=== PATIENT | male | born 1965 | race Caucasian/White ===

== ENCOUNTER 2017-05-03 11:29 | Outpatient (CLI) | payer BC ==
[2017-05-03 13:23] LABS: Bilirubin Negative (Negative); Blood, Urine Negative (Negative); Clarity CLEAR (Clear); Glucose, Urine (Dipstick) Negative (Negative); Leukocyte Negative (Negative); Nitrite Negative (Negative); Protein, Urine (Dipstick) Negative (Neg-Trace); Specific Gravity, Urine 1.023 (1.002-1.036); Urobilinogen 0.2 mg/dL (0.2-1.0); pH, Urine 5.5 (5.0-9.0)
[2017-05-03 13:25] LABS: Bacteria/HPF None Seen HPF (None Seen); Hyaline Casts/LPF 0-3 HYALINE CAST LPF (0-3 Hyaline); RBC/HPF 0-3 HPF (0-3); Squamous Epithelial None Seen HPF (0-3); WBC/HPF 0-3 HPF (0-3)
[2017-05-03 13:26] LABS: #Basophils 0.1 thou/uL (0.0-0.2); #Eosinphils 0.2 thou/uL (0.0-0.7); #Lymphocytes 4.7 thou/uL (1.20-3.40); #Neutrophils 9.9 thou/uL (1.40-6.50); %Basophils 0.9 % (0.0-1.0); %Eosinophils 1.4 % (0.0-10.0); %Lymphocytes 29.6 % (21.0-51.0); %Monocytes 6.1 % (0.0-10.0); Hemoglobin 16.2 g/dL (14.0-18.0); Mean Corpuscular Hemoglobin 30.4 pg (27.0-31.0); Mean Platelet Volume 7.8 fL (7.4-10.4); Platelet Count 233 thou/uL (130-400); RBC Distribution Width 13.2 % (11.5-14.5); Red Blood Cell (RBC) Count 5.34 mill/uL (4.70-6.10); White Blood Cell (WBC) Count 15.9 thou/uL (4.8-10.8)
== END 2017-05-03 11:30 | disposition home or self-care (01) ==
LOC: LABBT 11:29
PROVIDERS: ATTEND Orthopaedic Surgery Hand Surgery
DX: Z01.812 Encounter for preprocedural laboratory examination (principal); D17.22 Benign lipomatous neoplasm of skin and subcutaneous tissue of left arm; Z88.0 Allergy status to penicillin
CPT/HCPCS: 81001; 85025

== ENCOUNTER 2017-05-10 09:43 | Day surgery (SDC) | payer BC ==
[2017-05-03 12:04] VITALS: BMI 34.2
[2017-05-10] MEDS ORDERED: CEFAZOLIN 1 GM, Syringe 2.5 ML in Sterile Water 7.5 ML SLOW IVP SCH (10:45)
[2017-05-10] MEDS ORDERED: Lidocaine 1% PF 5 ML VIAL ONE (14:13)
[2017-05-10] MEDS ORDERED: Ondansetron HCl/PF 4 MG/2 ML Vial ONE (14:13)
[2017-05-10] MEDS ORDERED: Propofol 200 MG/20 ML VIAL ONE (14:13)
[2017-05-10] MEDS ORDERED: Ketorolac Tromethamine 30 MG/ML VIAL ONE ×2 (14:13→16:36)
[2017-05-10] MEDS ORDERED: Clindamycin/D5W 900 mg/50 ml Premix Bag ONE (14:20)
[2017-05-10] MEDS ORDERED: Bupivacaine PF 0.5% 30 ML VIAL ONE (15:16)
[2017-05-10] MEDS ORDERED: Bacitracin Zinc Ointment 30 gm TUBE ONE (15:16)
[2017-05-10] MEDS ORDERED: Betamet Acet/Betamet Na Ph 30 MG/5 ML VIAL ONE (15:16)
[2017-05-10] MEDS ORDERED: Midazolam HCl 2 mg/2 ml Vial ONE (15:34)
[2017-05-10] MEDS ORDERED: Fentanyl 100 MCG/2 ML VIAL ONE (15:35)
--- NOTE | 2017-05-11 00:21 | OP ---
DATE OF PROCEDURE: 05/10/2017 PREOPERATIVE DIAGNOSIS: Left thumb lipoma. POSTOPERATIVE DIAGNOSIS: Left thumb lipoma. FINDINGS: Left thumb inclusion cyst, 1 cm diameter with classic inclusion cyst. PROCEDURE PERFORMED: Excisional biopsy, left thumb inclusion cyst. SPECIMENS: Cyst and cavity. TOURNIQUET TIME: 5 minutes. ESTIMATED BLOOD LOSS: 5 mL. INDICATIONS: Pain with contact to the mass, but no Tinel's indicative of neuroma. FINDINGS: A mass between two of the branches of the terminal portion of the thumb, left thumbs, ulna r digital nerves, but not in case around the nerve. BAIT TIER: Kvng Squires, certified coding specialist. DESCRIPTION OF PROCEDURE: After successful general LMA technique, the limb was prepped and draped. Time out was done appropriately. We gave the patient 10 mL 0.5% Marcaine without epinephrine metacar pophalangeal joint block level at the left thumb. We then proceeded with a zigzag incision that was on the most ulnar edge of the mass stand away from the central tuft throughout its entirety. We judd ied this 1.5 cm incision to the skin, subcutaneous tissue until we immediately came upon what was a c lassic layered wax appearance outer cover exudate-filled sebaceous cyst. We dissected this inc luded between the branches of the digital nerve that was protecting them. There was a brown fibrinou s material at the base of it, which were also removed. We then sent the mass as specimen to the lab. Irrigated the area and then released the tourniquet. Hemostasis obtained. Closed incision with inte rrupted 4-0 nylon simple pattern. Bulky dressing was applied and the patient went to the operating r oom without evidence of anesthetic complications.
== END 2017-05-10 17:45 | disposition home or self-care (01) ==
LOC: SDC 09:43
PROVIDERS: ATTEND Orthopaedic Surgery Hand Surgery
PROC: 0JBK0ZZ Excision of Left Hand Subcutaneous Tissue and Fascia, Open Approach (ICD-10-PCS; principal; 2017-05-10)
DX: L72.0 Epidermal cyst (principal); N18.6 End stage renal disease; G43.909 Migraine, unspecified, not intractable, without status migrainosus; F17.210 Nicotine dependence, cigarettes, uncomplicated; H26.9 Unspecified cataract; Z79.2 Long term (current) use of antibiotics; Z79.899 Other long term (current) drug therapy; Z88.0 Allergy status to penicillin; Z91.018 Allergy to other foods; Z98.890 Other specified postprocedural states; Z87.01 Personal history of pneumonia (recurrent)
CPT/HCPCS: 88304; 96372; A4216; J0690; J0702; J1885; J2001; J2250; J2405; J2704; J3010; J3490; S0020

== ENCOUNTER 2020-09-13 12:00 | Observation (INO) | payer BC ==
[2020-09-13 12:22] LABS: #Eosinphils 0.3 thou/uL (0.0-0.7); #Lymphocytes 2.4 thou/uL (1.20-3.40); #Monocytes 0.9 thou/uL (0.11-0.59); #Neutrophils 7.4 thou/uL (1.40-6.50); %Basophils 0.3 % (0.0-1.0); %Eosinophils 2.3 % (0.0-10.0); %Lymphocytes 22.2 % (21.0-51.0); %Monocytes 8.2 % (0.0-10.0); Hemoglobin 16.5 g/dL (14.0-18.0); Mean Corpuscular HGB CONC 33.1 g/dL (32.0-36.0); Mean Corpuscular Hemoglobin 30.3 pg (27.0-31.0); Mean Corpuscular Volume 91.3 fL (78.0-98.0); Mean Platelet Volume 7.8 fL (7.4-10.4); Platelet Count 214 thou/uL (130-400); RBC Distribution Width 13.5 % (11.5-14.5); Red Blood Cell (RBC) Count 5.47 mill/uL (4.70-6.10)
[2020-09-13 12:43] LABS: ALT (SGPT) 29 U/L (8-55); AST (SGOT) 19 U/L (5-34); Albumin 4.3 g/dL (3.5-5.0); Alkaline Phosphatase 97 U/L (40-110); Anion Gap 13 mmol/L (10-20); BUN (Urea Nitrogen) 13 mg/dL (8.4-25.7); Bilirubin, Total 0.8 mg/dL (0.2-1.2); Calc. Creatinine Clearance 0 mL/min (70-130); Calcium 9.5 mg/dL (7.8-10.44); Carbon Dioxide 25 mmol/L (22-29); Chloride 104 mmol/L (98-107); Globulin 2.9 g/dL (2.4-3.5); Glucose 103 mg/dL (70-105); Potassium 3.7 mmol/L (3.5-5.1); Protein, Total 7.2 g/dL (6.0-8.3); Sodium 138 mmol/L (136-145)
[2020-09-13] MEDS ORDERED: Aspirin Chewable 81 MG TAB ONE (15:08)
[2020-09-13] MEDS ORDERED: Nitroglycerin 0.4 MG TAB (25 Tab Bottle) SL PRN (16:13)
[2020-09-13] MEDS ORDERED: Acetaminophen 325 MG TAB PO PRN (16:13)
[2020-09-13] MEDS ORDERED: Ondansetron PF 4 MG/2 ML Vial IVP PRN (16:13)
[2020-09-13] MEDS ORDERED: Bisacodyl 5 MG TAB PO PRN (16:13)
[2020-09-13] MEDS ORDERED: hydrALAZINE 20 MG/ML VIAL SLOW IVP PRN (16:13)
[2020-09-13 16:14] LABS: Troponin I Less than 0.010 ng/mL (< 0.028)
[2020-09-13] MEDS ORDERED: Nicotine 21 MG PATCH TD SCH (17:00)
[2020-09-13 19:13] LABS: Troponin I Less than 0.010 ng/mL (< 0.028)
[2020-09-13 21:34] VITALS: BMI 35.7
[2020-09-13 23:34] LABS: SARS-CoV-2 NAA Rapid Test Not Detected (NotDetected)
[2020-09-14 05:20] LABS: #Basophils 0.1 thou/uL (0.0-0.2); #Eosinphils 0.5 thou/uL (0.0-0.7); #Lymphocytes 2.9 thou/uL (1.20-3.40); #Monocytes 0.9 thou/uL (0.11-0.59); #Neutrophils 5.6 thou/uL (1.40-6.50); %Basophils 0.9 % (0.0-1.0); %Eosinophils 4.6 % (0.0-10.0); %Lymphocytes 29.2 % (21.0-51.0); %Monocytes 8.7 % (0.0-10.0); %Neutrophils 56.6 % (42.0-75.0); Hemoglobin 15.7 g/dL (14.0-18.0); Mean Corpuscular HGB CONC 34.1 g/dL (32.0-36.0); Mean Corpuscular Volume 90.8 fL (78.0-98.0); Platelet Count 191 thou/uL (130-400); RBC Distribution Width 13.5 % (11.5-14.5); Red Blood Cell (RBC) Count 5.06 mill/uL (4.70-6.10); White Blood Cell (WBC) Count 9.9 thou/uL (4.8-10.8)
[2020-09-14 05:45] LABS: Anion Gap 12 mmol/L (10-20); BUN (Urea Nitrogen) 20 mg/dL (8.4-25.7); Calc. Creatinine Clearance 167 mL/min (70-130); Calcium 8.9 mg/dL (7.8-10.44); Carbon Dioxide 24 mmol/L (22-29); Cardiac Risk 6.9 (Less than 4.5); Chloride 106 mmol/L (98-107); Cholesterol 187 mg/dl (< 200 Desired); Glucose 103 mg/dL (70-105); HDL Cholesterol 27 mg/dL (>60 Neg Risk); LDL Cholesterol, Calculated 125 mg/dL; Potassium 3.7 mmol/L (3.5-5.1); Sodium 138 mmol/L (136-145); Triglycerides 176 mg/dL (Less than 150)
[2020-09-14] MEDS ORDERED: Dicyclomine 10 MG CAP PO SCH (09:00)
[2020-09-14] MEDS ORDERED: Aspirin 325 mg Enteric Coated Tablet PO SCH (09:00)
[2020-09-14] MEDS ORDERED: Hydrochlorothiazide 25 MG TAB PO SCH (09:00)
[2020-09-14 16:23] VITALS: BP 130/78; TEMP 97.8
[2020-09-14] MEDS ORDERED: tiZANidine HCl 4 MG TAB PO SCH (21:00)
== END 2020-09-14 16:45 | disposition home or self-care (01) ==
LOC: ERS 12:00 → ERHOLD 14:35 → 2SW 15:16
PROVIDERS: ADMIT Internal Medicine; ATTEND Internal Medicine
DX: G45.9 Transient cerebral ischemic attack, unspecified (principal); R07.89 Other chest pain; E78.5 Hyperlipidemia, unspecified; F17.210 Nicotine dependence, cigarettes, uncomplicated; I10 Essential (primary) hypertension; G43.909 Migraine, unspecified, not intractable, without status migrainosus; Z79.899 Other long term (current) drug therapy; Z88.0 Allergy status to penicillin; Z91.018 Allergy to other foods; Z20.822 Contact with and (suspected) exposure to COVID-19
CPT/HCPCS: 36415; 70450; 70551; 71046; 78452; 80048; 80053; 80061; 84484; 85025; 85379; 93005; 93017; 93880; 96374; A9500; G0378; J0153; J2405; U0002; U0005